=== PATIENT | male | born 1955 | race Caucasian/White ===

== ENCOUNTER 2018-07-18 13:43 | Outpatient (CLI) | payer OTHER ==
--- NOTE | 2018-07-18 15:03 | RAD ---
LUMBAR SPINE THREE VIEW SERIES: 07/18/18 INDICATION: Low back pain with lower extremity radiculopathy. FINDINGS: Lateral views, neutral, flexion and extension performed. Flexion and extension positioning does not r eveal significant translational motion and there is no discrete spondylolisthesis on the basis of will ral lateral imaging. There is a prominent degree of multilevel degenerative change throughout the lum bar spine including disc degenerative disease as well as prominent facet osteoarthritis. Exam is some what limited due to under penetration from overlying soft tissues. IMPRESSION: Prominent degenerative change of the lumbar spine on the basis of lateral views. There is no obvious listhesis or significant translational motion. POS: DASH
--- NOTE | 2018-07-18 15:30 | MRI ---
MRI lumbar spine. HISTORY: Lumbar radiculopathy, M54.16. Multiplanar, multisequence noncontrast enhanced MRI images lumbar spine obtained. Radiographic findings: T12-L1: Unremarkable. L1-2: Disc desiccation seen. There is a broad-based central disc bulge resulting in moderate degree o f central and lateral recess stenosis. There is bilateral facet and ligamentum flavum hypertrophy. There is a moderate bilateral neural foraminal narrowing seen. L2-3: Disc desiccation seen. There is a broad-based central disc bulge. There is bilateral facet and ligamentum flavum hypertrophy which with a broad-based disc bulge resulting in moderate degree of central and lateral recess stenosis. There is moderate right and mild left-sided neural foraminal anna rowing seen. There is irregularity involving the superior endplate of L3 likely due to a Schmorl's node. L3-4: Disc desiccation seen. There is a broad-based disc bulge. There is bilateral facet and ligament um flavum hypertrophy. 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 These findings all results in a moderate severe central and lateral recess stenosis. Moderate bilateral neural foraminal narrowing seen. L4-5: Disc desiccation seen. There is a broad-based disc bulge compressing the thecal sac. Moderate b ilateral facet hypertrophy seen. This with a broad-based central disc bulge at L4-5 results in moderate degree of central and lateral recess stenosis. There is moderate right and moderate to sever e left-sided neural foraminal narrowing seen. L5-S1: Disc desiccation seen. There is a left-sided disc protrusion extending in the left L5-S1 later al recess compressing the left S1 nerve root. There is moderate right-sided and severe left-sided neural foraminal narrowing due to ligamentum flavum hypertrophy and facet hypertrophy as well as the broad-based disc bulge and left L5-S1 disc protrusion IMPRESSION: Central and lateral recess stenosis at multiple mid and lower lumbar regions. There is a left-sided L 5-S1 disc protrusion compressing the thecal sac and left S1 nerve root in the lateral recess. This protrusion also extends into the left L5-S1 neural foramen. Transcribed Date/Time: 07/18/2018 3:42 PM
== END 2018-07-18 13:44 | disposition home or self-care (01) ==
LOC: SCSMRI 13:43
PROVIDERS: ATTEND Neurological Surgery
DX: M47.26 Other spondylosis with radiculopathy, lumbar region (principal); M43.16 Spondylolisthesis, lumbar region; M48.061 Spinal stenosis, lumbar region without neurogenic claudication; M51.17 Intervertebral disc disorders with radiculopathy, lumbosacral region
CPT/HCPCS: 72100; 72148

== ENCOUNTER 2018-08-23 08:15 | Outpatient (CLI) | payer OTHER ==
[2018-08-23 09:59] LABS: Hemoglobin 14.4 g/dL (14.0-18.0); Mean Corpuscular HGB CONC 30.6 g/dL (32.0-36.0); Mean Corpuscular Hemoglobin 24.1 pg (27.0-31.0); Mean Corpuscular Volume 78.9 fL (78.0-98.0); Mean Platelet Volume 9.5 fL (7.4-10.4); Platelet Count 212 thou/uL (130-400); Red Blood Cell (RBC) Count 5.95 mill/uL (4.70-6.10); White Blood Cell (WBC) Count 8.2 thou/uL (4.8-10.8)
[2018-08-23 10:07] LABS: PTT 27.2 SEC (22.9-36.1); Prothrombin Time 13.7 SEC (12.0-14.7)
[2018-08-23 10:21] LABS: Anion Gap 13 mmol/L (10-20); BUN (Urea Nitrogen) 33 mg/dL (8.4-25.7); Calc. Creatinine Clearance 0 mL/min (70-130); Calcium 9.5 mg/dL (7.8-10.44); Carbon Dioxide 21 mmol/L (23-31); Chloride 109 mmol/L (98-107); Estimated GFR-MDRD 36; Glucose 103 mg/dL (80-115); Potassium 4.2 mmol/L (3.5-5.1); Sodium 139 mmol/L (136-145)
--- NOTE | 2018-08-23 16:57 | EKG ---
Test Reason : Blood Pressure : / mmHG Vent. Rate : 060 BPM Atrial Rate : 060 BPM P-R Int : 174 ms QRS Dur : 112 ms QT Int : 448 ms P-R-T Axes : 065 005 046 degrees QTc Int : 448 ms Normal sinus rhythm Cannot rule out Anterior infarct (cited on or before 05-DEC-2014) Abnormal ECG When compared with ECG of 05-DEC-2014 10:04, T wave inversion no longer evident in Inferior leads Confirmed by DR. Yojana ROJAS ([id number]) on 08/23/2018 4:56:51 PM Referred By: SHEYLA Confirmed By:DR. Yojana ROJAS
== END 2018-08-23 08:16 | disposition home or self-care (01) ==
LOC: LABBT 08:15
PROVIDERS: ATTEND Neurological Surgery
DX: Z01.818 Encounter for other preprocedural examination (principal); M48.062 Spinal stenosis, lumbar region with neurogenic claudication
CPT/HCPCS: 80048; 85027; 85610; 85730; 93005; 93010

== ENCOUNTER 2018-08-24 07:29 | Day surgery (SDC) | payer OTHER ==
--- NOTE | 2018-08-22 16:59 | HP ---
HISTORY OF PRESENT ILLNESS: Mr. Burris is a 63-year-old male, who reports to our office for evaluation of low back and left greater than right radicular symptoms with left greater than right footdrop. The patient walks with a steppage gait and complains that in the past three weeks, he has progressively worse low back pain with sharp shooting pain that radiates down the back of his gluteus into his thighs. 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 He states that on occasion, his feet will trip over the carpet and the pain is getting worse with standing, but improves in sitting or lying down. Ibuprofen and Tylenol for pain relief. Denies physical therapy or injections at this time. REVIEW OF SYSTEMS: A 10-point review of systems has been completed and is negative other than stated in the above HPI. PAST MEDICAL HISTORY: Sleep apnea with CPAP, hypertension, umbilical hernia, insomnia, testosterone deficiency, secondary polycythemia, glaucoma, and cataract. PAST SURGICAL HISTORY: Neck fusion in 1999, colonoscopy, umbilical hernia in 2014, and cataract surgery in 2018. FAMILY HISTORY: Father is , diagnosed with hypertension. Mother is , diagnosed with diabetes, hypertension, and stroke. Siblings are alive. Sister is , unsure. SOCIAL HISTORY: The patient is a nonsmoker and occasionally drinks beer. Denies drug use. 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 MEDICATIONS: Eyedrops, Bystolic, tizanidine, amlodipine, gabapentin, valsartan, hydrochlorothiazide, diclofenac, anastrozole, and aspirin. ALLERGIES: NO KNOWN DRUG ALLERGIES. PHYSICAL EXAMINATION: CONSTITUTIONAL: Well appearing, well nourished, and alert. NEUROLOGIC: Awake, alert, and oriented x3. Speech, spontaneous and fluent. Normal fund of knowledge. Cranial nerves, grossly intact. Lower extremities, 5/5 bilateral strength, hip flexion, knee flexion, knee extension, plantar flexion. 3/5 left and 4/5 right dorsiflexion, 3-/5 left and 4/5 right EHL. Positive radiculopathy. Positive single leg raise. Hip rotation normal bilaterally. Tender to palpate lumbar spine. Deep tendon reflex; 2+ patellar, 2+ Achilles. Negative Babinski. No clonus. Sensory, light touch intact. Gait and station, sit to standing, normal, steppage gait, unable to heel walk, left greater than right difficulty toe walk, acceptable. RESPIRATIONS: Normal work of breathing on room air. ASSESSMENT AND PLAN: MRI, stenosis severe at L1 through S1, L5-S1, left disk. Bilateral lateral recess crowding L4-L5. Flexion-extension x-rays are stable. Dr. Callaway has offered laminectomy without fusion, L4 through S1. The patient states that he understands the risks and is willing to proceed. Job ID: [id number]
[2018-08-23 08:29] VITALS: BMI 39.0
[2018-08-24] MEDS ORDERED: Bupivacaine HCl 0.5%/Epinephrine 1:200,000/PF 30 ml Vial ONE (08:37)
[2018-08-24] MEDS ORDERED: Midazolam HCl 2 mg/2 ml Vial ONE (08:37)
[2018-08-24] MEDS ORDERED: Thrombin 5000 UNITS/5 ML VIAL ONE (08:37)
[2018-08-24] MEDS ORDERED: Fentanyl 100 MCG/2 ML VIAL ONE (08:37)
[2018-08-24] MEDS ORDERED: Sodium Chloride 0.9% 10 ML ONE (08:37)
[2018-08-24] MEDS ORDERED: Lidocaine 2% Jelly 5 ML TUBE ONE (08:38)
[2018-08-24] MEDS ORDERED: Phenylephrine HCL 10 MG/ML VIAL ONE (09:02)
--- NOTE | 2018-08-24 11:57 | OP ---
DATE OF PROCEDURE: 08/24/2018 UTILITY LOCATOR: Brianna Waterman PA-C. PREOPERATIVE INDICATION: Treat pain and prevent neurological deterioration. PREOPERATIVE DIAGNOSES: 1. Multilevel lumbar stenosis with neurogenic claudication. 2. Left-sided intervertebral disk herniation at L5-S1 with S1 radiculopathy. POSTOPERATIVE DIAGNOSES: 1. Multilevel lumbar stenosis with neurogenic claudication. 2. Left-sided intervertebral disk herniation at L5-S1 with S1 radiculopathy. OPERATIVE PROCEDURES: 1. Decompressive laminectomy, medial facetectomy, and foraminotomy at L3-L4, L4-L5. and L5-S1. 2. L5-S1 left-sided microdiskectomy. 3. Operating microscope. PREOPERATIVE MEDICATION: Ancef 2 g IV. DRAIN NUMBER: Zero. DRAIN TYPE: None. DESCRIPTION OF PROCEDURE: The patient was brought to the operating room. General endotracheal anesthesia was induced. The patient was positioned prone on the operating table with the chest and hips supported by gel-filled chest rolls. A lateral fluoro radiograph was used to plan our incision. The lumbar skin was sterilely prepped and draped. We opened with a 10 blade knife and controlled bleeding with bipolar and monopolar cautery. We used monopolar cautery to dissect through subcutaneous tissues to the thoracodorsal fascia. We incised the fascia in the midline and reflected the paraspinal muscles off the spinous process and lamina of L3, L4, L5 and the superior portion of the sacrum. A lateral fluoro radiograph confirmed the levels, upon which we were operating. Interestingly, we found that the sacral spinous processes were loose and floating above the dura and over some ligamentous structures. We left them in place. Self-retaining retractors were placed. We used an Adson rongeur to remove the spinous process of L3, L4, L5. Using angled curette, we identified the inferior margin of each of the laminae, and using Kerrison, we fashioned a laminectomy. We took a laminectomy from S1 all the way up to the pedicles at L3. We widened our laminectomy defect until we were just as wide as the medial portion of the pedicles on both sides. We performed medial facetectomies and undermined the lateral recesses to ensure the traversing and exiting nerve roots had no compression. We performed foraminotomies of the L3, L4, L5, and S1 nerve roots. We irrigated with bacitracin irrigation and turned our attention to the disk protrusion. We brought the operating microscope into the field. Under microscopic magnification using microsurgical techniques, we carefully retracted the S1 nerve root medially from the left towards the midline. The disk protrusion was present immediately beneath the nerve and we incised it. We removed loose fragments of disk from the ventral epidural space with a blunt hook. We reached into the hole in the anulus to remove loose fragments of disk from the interspace. There were likely come out in the postoperative. The remainder of the disk was firmly adherent to the endplates. We then irrigated copiously with bacitracin irrigation. We infused local anesthetic in the paraspinal muscles. We waxed the bone edges. We treated the wound with vancomycin powder and we closed in anatomical layers. This was a clean case with no contamination. Job ID: [id number]
[2018-08-24] MEDS ORDERED: PROPOFOL 200 MG/20 ML VIAL ONE (15:49)
[2018-08-24] MEDS ORDERED: Dexamethasone 20 MG/5 ML VIAL ONE (15:49)
[2018-08-24] MEDS ORDERED: Vecuronium 10 MG VIAL ONE (15:49)
[2018-08-24] MEDS ORDERED: Glycopyrrolate 0.2 MG/ML 5 ML SYRINGE ONE (15:49)
[2018-08-24] MEDS ORDERED: ePHEDrine 50 MG/ML VIAL ONE (15:49)
[2018-08-24] MEDS ORDERED: Lidocaine 1% PF 5 ML VIAL ONE (15:49)
[2018-08-24] MEDS ORDERED: PHENYLEPHRINE-NS 100 MCG/ML 10 ML SYRINGE ONE (15:49)
[2018-08-24] MEDS ORDERED: Ondansetron PF 4 MG/2 ML Vial ONE (15:49)
[2018-08-24] MEDS ORDERED: Rocuronium Bromide 10 MG/ML (10ML VIAL) ONE (15:49)
[2018-08-24] MEDS ORDERED: Lidocaine 0.5%/Epinephrine 1:200,000 50 ml Vial ONE (17:37)
== END 2018-08-24 18:40 | disposition home or self-care (01) ==
LOC: SDC 07:29
PROVIDERS: ATTEND Neurological Surgery
PROC: 01NB0ZZ Release Lumbar Nerve, Open Approach (ICD-10-PCS; principal; 2018-08-24)
DX: M48.062 Spinal stenosis, lumbar region with neurogenic claudication (principal); M48.07 Spinal stenosis, lumbosacral region; M51.17 Intervertebral disc disorders with radiculopathy, lumbosacral region; G47.30 Sleep apnea, unspecified; G47.00 Insomnia, unspecified; I10 Essential (primary) hypertension; Z99.89 Dependence on other enabling machines and devices; Z79.82 Long term (current) use of aspirin; Z79.899 Other long term (current) drug therapy
CPT/HCPCS: 76000; J0670; J0690; J2001; J2250; J2370; J3010; J3370; J3490

== ENCOUNTER 2019-03-08 12:06 | Outpatient (CLI) | payer OTHER, BC | END 2019-03-08 12:07 | disposition home or self-care (01) | LOC: ULT 12:06 | PROVIDERS: ATTEND Family Medicine | DX: R06.02 Shortness of breath (principal); I08.1 Rheumatic disorders of both mitral and tricuspid valves | CPT/HCPCS: 93306 ==

== ENCOUNTER 2022-02-02 09:37 | Outpatient (CLI) | payer BC ==
[2022-02-02 15:07] LABS: #Eosinphils 0.1 thou/uL (0.0-0.7); #Lymphocytes 1.6 thou/uL (1.20-3.40); #Monocytes 0.9 thou/uL (0.11-0.59); #Neutrophils 5.7 thou/uL (1.40-6.50); %Basophils 0.4 % (0.0-1.0); %Eosinophils 1.7 % (0.0-10.0); %Lymphocytes 18.8 % (21.0-51.0); %Monocytes 10.9 % (0.0-10.0); %Neutrophils 68.2 % (42.0-75.0); Anisocytosis SLIGHT = 6-15 cells (100X) (0-5/hpf); Hemoglobin 15.3 g/dL (14.0-18.0); Hypochromia SLIGHT = 6-15 cells (100X) (0-5/hpf); MDiff Complete? YES; Mean Corpuscular Hemoglobin 23.9 pg (27.0-31.0); Mean Corpuscular Volume 79.9 fl (78.0-98.0); Mean Platelet Volume 10.1 fL (7.4-10.4); Ovalocytes SLIGHT = 2-5 cells (100X) (0-1/hpf); Platelet Count 261 10x3/uL (130-400); Platelet Morphology Comment Appears Adequate; Polychromasia SLIGHT = 2-3 cells (100X) (0-2/hpf); RBC Distribution Width 16.7 % (11.5-14.5); Red Blood Cell (RBC) Count 6.39 mill/uL (4.70-6.10); White Blood Cell (WBC) Count 8.4 10x3/uL (4.8-10.8)
== END 2022-02-02 09:38 | disposition home or self-care (01) ==
LOC: SCSRAD 09:37
PROVIDERS: ATTEND Nurse Practitioner Family
DX: L89.893 Pressure ulcer of other site, stage 3 (principal)
CPT/HCPCS: 36415; 85025; 85652; 86140

== ENCOUNTER 2022-05-02 07:00 | Outpatient (CLI) | payer BC ==
[2022-05-02 08:00] LABS: Hemoglobin 14.6 g/dL (13.5-17.5); Mean Corpuscular HGB CONC 29.6 g/dL (32.0-36.0); Mean Corpuscular Hemoglobin 21.8 pg (27.0-33.0); Mean Corpuscular Volume 73.6 fl (81.2-95.1); Mean Platelet Volume 10.9 fl (7.4-10.4); Platelet Count 310 10x3/uL (150-450); RBC Distribution Width 19.9 % (11.5-14.5); Red Blood Cell (RBC) Count 6.71 10x6/uL (4.32-5.72)
[2022-05-02 08:23] LABS: Anion Gap 14 mmol/L (10-20); BUN (Urea Nitrogen) 12 mg/dL (8.4-25.7); Calc. Creatinine Clearance 0 mL/min (70-130); Calcium 9.5 mg/dL (7.8-10.44); Carbon Dioxide 21 mmol/L (23-31); Chloride 108 mmol/L (98-107); Estimated GFR 52; Glucose 126 mg/dL (80-115); Potassium 3.8 mmol/L (3.5-5.1); Sodium 139 mmol/L (136-145)
== END 2022-05-02 07:01 | disposition home or self-care (01) ==
LOC: LABBT 07:00
PROVIDERS: ATTEND Specialist
DX: Z01.818 Encounter for other preprocedural examination (principal); J32.2 Chronic ethmoidal sinusitis; J32.3 Chronic sphenoidal sinusitis; J34.3 Hypertrophy of nasal turbinates; J34.89 Other specified disorders of nose and nasal sinuses
CPT/HCPCS: 80048; 85027; 93005; 93010

== ENCOUNTER 2022-07-26 14:50 | Outpatient (CLI) | payer MEDICARE, BC ==
[2022-07-26 15:48] LABS: Hemoglobin 15.7 g/dL (13.5-17.5); Mean Corpuscular HGB CONC 29.7 g/dL (32.0-36.0); Mean Corpuscular Hemoglobin 22.2 pg (27.0-33.0); Mean Corpuscular Volume 74.6 fl (81.2-95.1); Mean Platelet Volume 11.1 fl (7.4-10.4); Platelet Count 265 10x3/uL (150-450); RBC Distribution Width 19.9 % (11.5-14.5); Red Blood Cell (RBC) Count 7.08 10x6/uL (4.32-5.72)
[2022-07-26 16:16] LABS: Anion Gap 14 mmol/L (10-20); BUN (Urea Nitrogen) 13 mg/dL (8.4-25.7); Calc. Creatinine Clearance 0 mL/min (70-130); Calcium 9.7 mg/dL (7.8-10.44); Carbon Dioxide 25 mmol/L (23-31); Chloride 106 mmol/L (98-107); Estimated GFR 61; Glucose 114 mg/dL (80-115); Potassium 4.1 mmol/L (3.5-5.1); Sodium 141 mmol/L (136-145)
== END 2022-07-26 14:51 | disposition home or self-care (01) ==
LOC: LABBT 14:50
PROVIDERS: ATTEND Specialist
DX: Z01.812 Encounter for preprocedural laboratory examination (principal); J34.3 Hypertrophy of nasal turbinates; J32.0 Chronic maxillary sinusitis; J32.1 Chronic frontal sinusitis; J32.2 Chronic ethmoidal sinusitis; J32.3 Chronic sphenoidal sinusitis
CPT/HCPCS: 80048; 85027

== ENCOUNTER 2022-11-22 16:08 | Inpatient (IN) | payer MEDICARE, BC ==
[2022-11-22] MEDS ORDERED: Ondansetron PF 4 MG/2 ML Vial IVP PRN (21:17)
[2022-11-22] MEDS ORDERED: Ondansetron ODT 4 MG TAB PO PRN (21:17)
[2022-11-22] MEDS ORDERED: HYDROcodone/Acetaminophen 5/325 mg Tablet PO PRN (21:17)
[2022-11-22] MEDS ORDERED: Calcium Carbonate 500 MG ChewTAB PO PRN (21:17)
[2022-11-22] MEDS ORDERED: Acetaminophen 325 MG TAB PO PRN (21:17)
[2022-11-22] MEDS ORDERED: Enoxaparin 120 MG/0.8 ML SYRINGE SC SCH (21:30)
[2022-11-22 21:46] VITALS: BMI 39.2
[2022-11-22] MEDS ORDERED: Dextrose 5%-Lactated Ringers 1,000 ML IV SCH (23:50)
[2022-11-23 06:09] LABS: #Basophils 0.1 thou/uL (0.0-0.2); #Eosinphils 0.4 thou/uL (0.0-0.7); #Monocytes 1.3 thou/uL (0.11-0.59); #Neutrophils 8.3 thou/uL (1.40-6.50); %Basophils 0.8 % (0.0-1.0); %Eosinophils 3.8 % (0.0-10.0); %Lymphocytes 9.2 % (21.0-51.0); %Monocytes 11.7 % (0.0-10.0); Hematocrit 41.8 % (42.0-52.0); Hemoglobin 12.9 g/dL (14.0-18.0); Mean Corpuscular HGB CONC 30.9 g/dL (32.0-36.0); Mean Corpuscular Hemoglobin 22.9 pg (27.0-31.0); Mean Corpuscular Volume 74.1 fl (78.0-98.0); Mean Platelet Volume 10.8 fL (7.4-10.4); Platelet Count 251 10x3/uL (130-400); RBC Distribution Width 18.6 % (11.5-14.5); Red Blood Cell (RBC) Count 5.64 mill/uL (4.70-6.10); White Blood Cell (WBC) Count 11.2 10x3/uL (4.8-10.8)
[2022-11-23 06:55] LABS: CellaVision Operator ID LAB.GE; Microcytosis SLIGHT = 6-15 cells HPF (0-5); Platelet Adequacy Comment Platelets Normal; Polychromasia SLIGHT = 2-3 cells HPF (0-2)
[2022-11-23 07:17] LABS: Anion Gap 12 mmol/L (10-20); BUN (Urea Nitrogen) 16 mg/dL (8.4-25.7); Calc. Creatinine Clearance 107 mL/min (70-130); Calcium 9.2 mg/dL (7.8-10.44); Carbon Dioxide 24 mmol/L (23-31); Chloride 102 mmol/L (98-107); Estimated GFR 65; Glucose 155 mg/dL (80-115); Potassium 3.4 mmol/L (3.5-5.1); Sodium 135 mmol/L (136-145)
[2022-11-23] MEDS: Gabapentin 400 MG CAP PO SCH ×2 (08:16→21:59)
[2022-11-23] MEDS: Famotidine 20 MG TAB PO SCH ×2 (08:16→21:59)
[2022-11-23] MEDS: hydrALAZINE 25 MG TAB PO SCH ×3 (08:16→21:58)
[2022-11-23] MEDS: VANCOMYCIN 2 GRAM/500 ML BAG 2 GM in Premix Bag 1 BAG IVPB SCH (08:17)
[2022-11-23] MEDS ORDERED: tiZANidine HCl 4 MG TAB PO PRN (08:27)
[2022-11-23] MEDS ORDERED: Potassium Chloride 20 MEQ TAB PO SCH (08:30)
[2022-11-23] MEDS ORDERED: Enoxaparin 120 MG/0.8 ML SYRINGE SC SCH (09:00)
[2022-11-23] MEDS: Montelukast Sodium 10 mg Tablet PO SCH (09:48)
[2022-11-23] MEDS: Cefepime 2 GM in Sodium Chloride 0.9% 100 ML IVPB SCH (12:36)
[2022-11-23] MEDS: Nebivolol HCl 5 MG TAB PO SCH (21:58)
[2022-11-23] MEDS: Latanoprost 0.005% Ophth Soln 2.5 ml Bottle EA EYE SCH (21:59)
[2022-11-24] MEDS: Cefepime 2 GM in Sodium Chloride 0.9% 100 ML IVPB SCH ×2 (01:05→12:02)
[2022-11-24 05:58] LABS: Hematocrit 45.4 % (42.0-52.0); Hemoglobin 13.7 g/dL (14.0-18.0); Mean Corpuscular HGB CONC 30.2 g/dL (32.0-36.0); Mean Corpuscular Hemoglobin 22.8 pg (27.0-31.0); Mean Corpuscular Volume 75.4 fl (78.0-98.0); Mean Platelet Volume 10.7 fL (7.4-10.4); Platelet Count 277 10x3/uL (130-400); RBC Distribution Width 18.8 % (11.5-14.5); Red Blood Cell (RBC) Count 6.02 mill/uL (4.70-6.10); White Blood Cell (WBC) Count 11.2 10x3/uL (4.8-10.8)
[2022-11-24 06:20] LABS: Anion Gap 13 mmol/L (10-20); BUN (Urea Nitrogen) 13 mg/dL (8.4-25.7); Calc. Creatinine Clearance 105 mL/min (70-130); Calcium 9.3 mg/dL (7.8-10.44); Carbon Dioxide 25 mmol/L (23-31); Chloride 100 mmol/L (98-107); Estimated GFR 64; Glucose 134 mg/dL (80-115); Potassium 3.9 mmol/L (3.5-5.1); Sodium 134 mmol/L (136-145)
[2022-11-24] MEDS ORDERED: Lidocaine 1% (PF) 30 ML VIAL ONE (07:59)
[2022-11-24 08:14] LABS: Vancomycin, Trough 7.8 ug/mL
[2022-11-24] MEDS: Aspirin Chewable 81 MG TAB PO SCH (09:23)
[2022-11-24] MEDS: Famotidine 20 MG TAB PO SCH ×2 (09:23→22:00)
[2022-11-24] MEDS: hydrALAZINE 25 MG TAB PO SCH ×3 (09:23→22:01)
[2022-11-24] MEDS: Montelukast Sodium 10 mg Tablet PO SCH (09:24)
[2022-11-24] MEDS: Gabapentin 400 MG CAP PO SCH ×2 (09:24→21:59)
[2022-11-24] MEDS: Vancomycin 1.5 GRAM/300 ML BAG 1.5 GM in Premix Bag 1 BAG IVPB SCH ×2 (09:25→21:56)
[2022-11-24] MEDS ORDERED: fentaNYL 50 mcg/mL 1 mL Vial SLOW IVP SCH (09:45)
[2022-11-24] MEDS: VANCOMYCIN 2 GRAM/500 ML BAG 2 GM in Premix Bag 1 BAG IVPB SCH (14:15)
[2022-11-24] MEDS: Nebivolol HCl 5 MG TAB PO SCH (21:58)
[2022-11-24] MEDS: Latanoprost 0.005% Ophth Soln 2.5 ml Bottle EA EYE SCH (21:58)
[2022-11-24] MEDS: Enoxaparin 120 MG/0.8 ML SYRINGE SC SCH (22:01)
[2022-11-25] MEDS: Cefepime 2 GM in Sodium Chloride 0.9% 100 ML IVPB SCH ×2 (01:03→13:26)
[2022-11-25] MEDS: Famotidine 20 MG TAB PO SCH (08:27)
[2022-11-25] MEDS: Aspirin Chewable 81 MG TAB PO SCH (08:27)
[2022-11-25] MEDS: Montelukast Sodium 10 mg Tablet PO SCH (08:27)
[2022-11-25] MEDS: hydrALAZINE 25 MG TAB PO SCH (08:28)
[2022-11-25] MEDS: Gabapentin 400 MG CAP PO SCH (08:28)
[2022-11-25] MEDS: Vancomycin 1.5 GRAM/300 ML BAG 1.5 GM in Premix Bag 1 BAG IVPB SCH (08:28)
[2022-11-25] MEDS: Enoxaparin 120 MG/0.8 ML SYRINGE SC SCH (10:34)
[2022-11-25 13:34] VITALS: BP 159/95; TEMP 98.8
== END 2022-11-25 15:09 | disposition home or self-care (01) | DRG 488 ==
LOC: SJJU 18:47
PROVIDERS: ADMIT Internal Medicine; ATTEND Internal Medicine
PROC: 0S9D0ZZ Drainage of Left Knee Joint, Open Approach (ICD-10-PCS; principal; 2022-11-24)
DX: M70.42 Prepatellar bursitis, left knee (principal); E87.1 Hypo-osmolality and hyponatremia; L03.116 Cellulitis of left lower limb; N17.9 Acute kidney failure, unspecified; I50.22 Chronic systolic (congestive) heart failure; I82.412 Acute embolism and thrombosis of left femoral vein; I13.0 Hypertensive heart and chronic kidney disease with heart failure and stage 1 through stage 4 chronic kidney disease, or unspecified chronic kidney disease; I48.91 Unspecified atrial fibrillation; M54.9 Dorsalgia, unspecified; Z79.899 Other long term (current) drug therapy; N18.30 Chronic kidney disease, stage 3 unspecified; E87.6 Hypokalemia; R73.03 Prediabetes; I48.0 Paroxysmal atrial fibrillation; G89.29 Other chronic pain; Z98.890 Other specified postprocedural states
CPT/HCPCS: 36415; 80048; 80053; 80202; 83036; 83605; 83735; 85025; 85027; 85610; 85730; 86140; 87040; 87070; 87205; 90471; 90694; 93005; 93925; 94760; 97139; G0008; J0692; J1650; J2001; J3010; J3370; J3490

== ENCOUNTER 2023-07-17 08:38 | Outpatient (CLI) | payer MEDICARE, BC | END 2023-07-17 08:39 | disposition home or self-care (01) | LOC: SCSMRI 08:38 | PROVIDERS: ATTEND Anesthesiology Pain Medicine | DX: M50.121 Cervical disc disorder at C4-C5 level with radiculopathy (principal); M48.02 Spinal stenosis, cervical region; Z98.1 Arthrodesis status | CPT/HCPCS: 72141 ==

== ENCOUNTER 2023-09-21 10:33 | Outpatient (CLI) | payer MEDICARE, BC | END 2023-09-21 10:34 | disposition home or self-care (01) | LOC: SCSRAD 10:33 | PROVIDERS: ATTEND Family Medicine | DX: Z01.818 Encounter for other preprocedural examination (principal) | CPT/HCPCS: 36415; 71046; 80053; 80061; 82306; 83036; 83970; 85025; 85610; 85730; 86803; 86900; 86901 ==

== ENCOUNTER 2023-11-16 13:35 | Outpatient (CLI) | payer MEDICARE, BC | END 2023-11-16 13:36 | disposition home or self-care (01) | LOC: SCSRAD 13:35 | PROVIDERS: ATTEND Neurological Surgery | DX: M47.12 Other spondylosis with myelopathy, cervical region (principal); M47.22 Other spondylosis with radiculopathy, cervical region; M48.02 Spinal stenosis, cervical region; Z98.1 Arthrodesis status | CPT/HCPCS: 72040 ==

== ENCOUNTER 2024-02-21 10:07 | Outpatient (CLI) | payer MEDICARE, BC | END 2024-02-21 10:08 | disposition home or self-care (01) | LOC: SCSRAD 10:07 | PROVIDERS: ATTEND Neurological Surgery | DX: M47.12 Other spondylosis with myelopathy, cervical region (principal); Z98.890 Other specified postprocedural states | CPT/HCPCS: 72040 ==